=== PATIENT | male | born 1990 | race Two or more races ===

== ENCOUNTER 2021-02-01 22:28 | Emergency (ER) | payer OTHER | END 2021-02-01 23:45 | disposition home or self-care (01) | LOC: ER1 22:28 | DX: S01.511A Laceration without foreign body of lip, initial encounter (principal); F17.200 Nicotine dependence, unspecified, uncomplicated; W22.8XXA Striking against or struck by other objects, initial encounter | CPT/HCPCS: 12011; 40650; 99283 ==